=== PATIENT | female | born 1965 | race Caucasian/White ===

== ENCOUNTER 2023-01-15 11:08 | Emergency (ER) | payer OTHER ==
[~2023-01-15] VITALS: Ht 167.6 cm; Wt 88.5 kg
--- NOTE | 2023-01-15 11:25 | NUR ---
[email or web address], medical screening exam in progress
[2023-01-15] MEDS ORDERED: ACETAMINOPHEN 325 MG TABLET PO ONE (11:30)
[2023-01-15] MEDS ORDERED: ACETAMINOPHEN 325 MG TABLET ONE (11:33)
--- NOTE | 2023-01-15 11:49 | NUR ---
Patient is back from radiology department, pending results and [email or web address] time.
[2023-01-15] MEDS ORDERED: TDAP DIPH,PERTUSS,TET VAC/PF 0.5 ML DISP.SYRIN IM ONE ×2 (12:45→12:56)
--- NOTE | 2023-01-15 13:10 | NUR ---
Patient is for discharged to home. Written and verbal after care instructions given to patient. Patient verbalized understanding and compliance of instructions. Stressed follow up or return to ER for worsening s/s. Patient said that she is waiting for her spouse to pick her up.
--- NOTE | 2023-01-15 13:33 | NUR ---
Patient left ER in stable condition with brisk steady gait.
== END 2023-01-15 13:33 | disposition home or self-care (01) ==
LOC: ER 11:11
DX: S01.01XA Laceration without foreign body of scalp, initial encounter (principal); V49.40XA Driver injured in collision with unspecified motor vehicles in traffic accident, initial encounter; Y92.411 Interstate highway as the place of occurrence of the external cause; E11.9 Type 2 diabetes mellitus without complications; Z79.84 Long term (current) use of oral hypoglycemic drugs; R03.0 Elevated blood-pressure reading, without diagnosis of hypertension; M54.2 Cervicalgia
CPT/HCPCS: 70450; 70490; 71045; 90715; A4663